=== PATIENT | male | born 1960 | race Caucasian/White ===

== ENCOUNTER 2023-07-15 12:41 | Emergency (ER) | payer MEDICARE, OTHER ==
[~2023-07-15] VITALS: Ht 175.3 cm; Wt 97.0 kg
[~2023-07-15 12:41] MED LIST: ACET-784 PO; ASPI-556 PO; ATOR10TA PO; BISA10SU11 PR; DIVA-112 PO; FLUP5TAB31 PO; HALO5TAB2 PO; INSNOV SQ; LORA10TA7 PO; METF-1211 PO; METO-558 PO; OMEG1CAP31 PO; OMEP20 PO; PALI6TAB15 PO; PROM118S5 PO; REPA1TAB8 PO; SITA100 PO; TAMS0.4C94 PO; TRAZ-257 PO
[2023-07-15 15:22] LABS: BASOPHILS % (AUTO) 0.6 % (0.0-2.0); EOSINOPHILS % (AUTO) 0.9 % (1.0-6.0); HEMATOCRIT 32.4 % (41-53); HEMOGLOBIN 10.7 g/dL (13.5-17.5); LYMPHOCYTES # (AUTO) 1.5 K/uL (1.0-4.8); LYMPHOCYTES % (AUTO) 16.3 % (22.0-44.0); MEAN CORPUSCULAR HEMOGLOBIN 31.5 pg (26.0-34.0); MEAN CORPUSCULAR HGB CONC 33.1 G/dL (31.0-37.0); MEAN CORPUSCULAR VOLUME 95 fL (80-100); MONOCYTES # (AUTO) 0.8 K/uL (0.1-1.0); MONOCYTES % (AUTO) 8.2 % (2.0-9.0); NEUTROPHILS # (AUTO) 6.8 K/uL (1.8-7.7); PLATELET COUNT (AUTO) 207 K/uL (150-450); RED CELL DISTRIBUTION WIDTH 16.5 % (11.5-14.5); WHITE BLOOD COUNT (AUTO) 9.2 K/uL (4.5-11.0)
[2023-07-15] MEDS ORDERED: SODIUM CHLORIDE 0.9% 1,000 ML IV ONE (15:30)
[2023-07-15 15:35] LABS: ALANINE AMINOTRANSFERASE 47 U/L (12-78); ALBUMIN 3.6 g/dL (3.4-5.0); ALKALINE PHOSPHATASE 137 U/L (46-116); ANION GAP 8 mmol/L (8-16); ASPARTATE AMINOTRANSFERASE 25 U/L (15-37); BILIRUBIN,TOTAL 0.3 mg/dL (0.1-1.0); CALCIUM, TOTAL 10.3 mg/dL (8.8-10.5); CARBON DIOXIDE 27 mmol/L (22-29); CHLORIDE 96 mmol/L (98-107); CREATININE 1.91 mg/dL (0.60-1.30); GLOMERULAR FILTR. RATE CALC 36 mL/min (>60); POTASSIUM 3.8 mmol/L (3.5-5.1); SODIUM SERUM 131 mmol/L (136-145); TOTAL PROTEIN, SERUM 7.7 g/dL (6.4-8.2); UREA NITROGEN, BLOOD 20 mg/dL (7-18)
[2023-07-15 15:36] LABS: ACETONE,BLOOD NEGATIVE (NEGATIVE)
[2023-07-15 15:40] LABS: GLUCOSE,RANDOM 443 mg/dL (70-110)
[2023-07-15] MEDS ORDERED: POTASSIUM CHLORIDE 20 MEQ ER TABLET PO ONE (15:45)
[2023-07-15] MEDS ORDERED: INSULIN REGULAR, HUMAN 100 UNITS/ML IVP ONE (15:45)
[2023-07-15 17:36] LABS: GLUCOMETER DEV NAME(LOC) ER.6; GLUCOSE,POINT OF CARE 372 MG/DL (70-110)
[2023-07-15 17:42] VITALS: TEMP 97.7
[2023-07-15 21:50] VITALS: BP 151/85; PULSE 116; RESP 20
== END 2023-07-15 22:41 | disposition home or self-care (01) ==
LOC: EMS 12:41
DX: E11.65 Type 2 diabetes mellitus with hyperglycemia (principal); J44.9 Chronic obstructive pulmonary disease, unspecified; F20.9 Schizophrenia, unspecified; F17.210 Nicotine dependence, cigarettes, uncomplicated; Z88.2 Allergy status to sulfonamides
CPT/HCPCS: 80053; 82009; 82962; 85025; 99283

== ENCOUNTER 2023-11-09 14:18 | Emergency (ER) | payer MEDICARE, OTHER ==
[~2023-11-09] VITALS: Ht 172.7 cm; Wt 107.1 kg
[~2023-11-09 14:18] MED LIST changes: +METO-325 PO; -METO-558 PO
[2023-11-09 15:30] VITALS: TEMP 98.5
[2023-11-09 16:04] LABS: BASOPHILS % (AUTO) 0.5 % (0.0-2.0); EOSINOPHILS % (AUTO) 1.2 % (1.0-6.0); HEMATOCRIT 32.3 % (41-53); HEMOGLOBIN 10.9 g/dL (13.5-17.5); LYMPHOCYTES # (AUTO) 1.5 K/uL (1.0-4.8); LYMPHOCYTES % (AUTO) 17.1 % (22.0-44.0); MEAN CORPUSCULAR HGB CONC 33.7 G/dL (31.0-37.0); MEAN CORPUSCULAR VOLUME 89 fL (80-100); MONOCYTES # (AUTO) 0.7 K/uL (0.1-1.0); NEUTROPHILS # (AUTO) 6.6 K/uL (1.8-7.7); NEUTROPHILS % (AUTO) 73.2 % (40.0-70.0); PLATELET COUNT (AUTO) 146 K/uL (150-450); RED BLOOD CELL COUNT(AUTO) 3.63 MIL/uL (4.50-5.90); RED CELL DISTRIBUTION WIDTH 15.2 % (11.5-14.5)
[2023-11-09] MEDS ORDERED: FOLI-130 PO (16:17)
[2023-11-09] MEDS ORDERED: METO50 PO (16:17)
[2023-11-09] MEDS ORDERED: INSU100V51 SQ (16:17)
[2023-11-09] MEDS ORDERED: CHOL100062 PO (16:17)
[2023-11-09] MEDS ORDERED: THIA50TA16 PO (16:17)
[2023-11-09] MEDS ORDERED: PALI6TAB PO (16:17)
[2023-11-09] MEDS ORDERED: IPRA4AER IH (16:17)
[2023-11-09] MEDS ORDERED: OLAN7.5T22 PO (16:17)
[2023-11-09] MEDS ORDERED: BUDE10.27 IH (16:17)
[2023-11-09] MEDS ORDERED: NA P133E4 PR (16:17)
[2023-11-09] MEDS ORDERED: MULT-248 PO (16:17)
[2023-11-09] MEDS ORDERED: ZALE5CAP6 PO (16:17)
[2023-11-09] MEDS ORDERED: BISA-151 PO (16:17)
[2023-11-09] MEDS ORDERED: FAMO20 PO (16:17)
[2023-11-09] MEDS ORDERED: MELA5TAB21 PO (16:17)
[2023-11-09] MEDS ORDERED: MAGN-169 PO (16:17)
[2023-11-09] MEDS ORDERED: ACET-2247 PO (16:18)
[2023-11-09 16:23] LABS: TROPONIN I-HIGH SENSITIVITY 19 ng/L (<76)
[2023-11-09 16:27] LABS: ALANINE AMINOTRANSFERASE 26 U/L (12-78); ALBUMIN 3.1 g/dL (3.4-5.0); ALKALINE PHOSPHATASE 113 U/L (46-116); ANION GAP 7 mmol/L (8-16); ASPARTATE AMINOTRANSFERASE 13 U/L (15-37); BILIRUBIN,TOTAL 0.3 mg/dL (0.1-1.0); CALCIUM, TOTAL 9.8 mg/dL (8.8-10.5); CARBON DIOXIDE 27 mmol/L (22-29); CHLORIDE 100 mmol/L (98-107); GLOMERULAR FILTR. RATE CALC 30 mL/min (>60); LIPASE 79 U/L (16-77); POTASSIUM 4.4 mmol/L (3.5-5.1); SODIUM SERUM 134 mmol/L (136-145); TOTAL PROTEIN, SERUM 6.8 g/dL (6.4-8.2); UREA NITROGEN, BLOOD 28 mg/dL (7-18)
[2023-11-09] MEDS: SODIUM CHLORIDE 0.9% 1,000 ML IV ONE (16:28)
[2023-11-09 16:31] LABS: GLUCOSE,RANDOM 417 mg/dL (70-110)
[2023-11-09] MEDS: INSULIN REGULAR, HUMAN 100 UNITS/ML IVP ONE (16:46)
[2023-11-09 16:49] LABS: ACETONE,BLOOD NEGATIVE (NEGATIVE)
[2023-11-09 18:10] LABS: APPEARANCE,URINE CLEAR (CLEAR); BILIRUBIN,URINE NEGATIVE (NEGATIVE); COLOR,URINE COLORLESS (YELLOW); GLUCOSE, URINE (UA) >=1000 mg/dL (NEGATIVE); KETONES,URINE NEGATIVE (NEGATIVE); LEUKOCYTE ESTERASE ,URINE NEGATIVE (NEGATIVE); NITRATE,URINE NEGATIVE (NEGATIVE); OCCULT BLOOD,URINE NEGATIVE (NEGATIVE); PROTEIN,URINE 30-70 mg/dL (NEGATIVE); SPECIFIC GRAVITIY, URINE 1.006 (1.003-1.030); UROBILINOGEN,URINE <=1.0 mg/dL (<=1.0)
[2023-11-09 18:16] LABS: BACTERIA,URINE None Seen /HPF (None Seen); RBC,URINE None Seen /HPF (0-2); SQUAMOUS EPITHELIAL CELL,UR Rare /LPF (None Seen); WBC,URINE None Seen /HPF (0-5)
[2023-11-09] MEDS: ACETAMINOPHEN 325 MG TABLET PO ONE (18:49)
[2023-11-09 18:55] VITALS: BP 156/92; PULSE 76; RESP 18
== END 2023-11-09 21:04 | disposition home or self-care (01) ==
LOC: EMS 14:19
DX: E11.65 Type 2 diabetes mellitus with hyperglycemia (principal); J44.9 Chronic obstructive pulmonary disease, unspecified; F20.9 Schizophrenia, unspecified; Z88.2 Allergy status to sulfonamides
CPT/HCPCS: 99284; 96374; 96361; 80053; 81001; 82009; 83690; 84484; 85025; 36415; 93005; J1815